=== PATIENT | male | born 1970 | race Caucasian/White ===

== ENCOUNTER 2019-07-13 17:53 | Emergency (ER) | payer MEDICARE, SELFPAY ==
[2019-07-13 17:53] VITALS: BP 132/83; PULSE 69; RESP 16; TEMP 36.2; O2SAT 100; BMI 17.2
--- NOTE | 2019-07-13 17:58 | EKG12_ITS ---
Test Reason : Blood Pressure : / mmHG Vent. Rate : 063 BPM Atrial Rate : 063 BPM P-R Int : 130 ms QRS Dur : 098 ms QT Int : 414 ms P-R-T Axes : 082 089 083 degrees QTc Int : 423 ms Normal sinus rhythm Normal ECG Confirmed by GURPREET LOPEZ, AKUA ([id number]), editorial cartoonist LAYLA CORBIN ([id number]) on 07/18/2019 11:49:06 AM Referred By: Connor Culver Confirmed By:AKUA VÁZQUEZ MD
--- NOTE | 2019-07-13 18:29 | EKG12_ITS ---
Test Reason : CP Blood Pressure : / mmHG Vent. Rate : 050 BPM Atrial Rate : 050 BPM P-R Int : 134 ms QRS Dur : 094 ms QT Int : 442 ms P-R-T Axes : 081 091 084 degrees QTc Int : 402 ms Sinus bradycardia with Premature atrial complexes Rightward axis Borderline ECG Confirmed by GURPREET LOPEZ, AKUA ([id number]), food expeditor LAYLA CORBIN ([id number]) on 07/18/2019 11:25:08 AM Referred By: Connor Culver Confirmed By:AKUA VÁZQUEZ MD
--- NOTE | 2019-07-13 18:29 | CT_ITS ---
STUDY: CTA CHEST REASON FOR EXAM: Male, 48 years old. Pain RADIATION DOSAGE (If Supplied By Facility): CTDIvol = ( 10.32 ) mGy, DLP = ( 275.38 ) mGycm TECHNIQUE: The examination was performed with the intravenous administration of IV 75mL Isovue-370 75ML. Post-processing of the angiographic images was performed, with multiplanar reformation and 3D reconstruction. Individualized dose optimization techniques were used for this CT. COMPARISON: None. FINDINGS: Normal enhancement of the main pulmonary artery and right and left pulmonary arteries. Normal enhancement of the bilateral peripheral pulmonary arteries. There is no demonstrated pulmonary embolism. Normal thoracic aorta and visualized great vessels. There is no demonstrated aortic dissection. Normal heart and pericardium. Normal mediastinum. Normal hilar regions. Normal visualized trachea and bronchi. The lungs are well expanded. Mild to moderate emphysema is present. There are mild diffuse ground glass opacities. There is no consolidation. Normal pleura. Normal chest wall structures. Normal osseous structures. Normal visualized upper abdomen. CT/CTA Chest W/WO Contrast IMPRESSION: No evidence of pulmonary embolism. Mild to moderate emphysema. Mild diffuse scattered ground glass opacities. Differential includes mild edema, inflammatory etiology, and less likely infectious process. Electronically Signed: Gurmeet Rosales, at 19:26 EST Tel , Service support ,
[2019-07-13] MEDS: Aspirin 81 MG TAB.CHEW 324 MG PO (18:35)
[2019-07-13 18:41] LABS: Absolute Lymphocyte Count 1.75 X10^3/uL (0.83-4.51); Absolute Neutrophil Count 6.3 X10^3/uL (2.0-7.7); Basophil# 0.03 X10^3/uL; Basophil% 0.3 % (0-1); Eosinophil# 0.08 X10^3/uL; Eosinophils% 0.9 % (0-5); Hematocrit 44.8 % (40-54); Hemoglobin 14.9 g/dL (13.0-16.5); Lymphocyte # 1.75 X10^3/ul (4.0); Lymphocyte % 19.6 % (19-41); Mean Corp Hgb Conc 33.3 g/dL (32-36); Mean Corpuscular Hgb 31.6 pg (27.0-32.0); Mean Corpuscular Volume 94.9 fL (80-94); Mean Platelet Vol. 10.6 fl (6.2-12.0); Monocyte# 0.76 X10^3/uL; Monocyte% 8.5 % (0-10); NRBC Flagged by Analyzer 0 % (0-5); Neutrophil # 6.32 X10^3/uL (2.7-7.7); Neutrophil % 70.6 % (47-70); Platelet Count 243 K/mm3 (150-450); RBC Distribution Width CV 12.9 % (11.6-14.6); RBC Distribution Width SD 45.1 fl (35.1-43.9); Red Blood Count 4.72 M/mm3 (4.6-6.2)
[2019-07-13 18:53] LABS: Anion Gap 6 (5-15); BUN 7 mg/dL (7-18); BUN/Creat Ratio 7.3 RATIO (10-20); Chloride 105 mmol/L (98-107); Creatinine, Serum 0.96 mg/dL (0.70-1.30); EST Glomerular Filtration Rate 89 mL/min (>60); Est Glom Filt Rate - Afr Amer 108 mL/min (>60); Estimated Creatinine Clearance 81.81 ml/min; Glucose 105 mg/dL (74-106); Potassium 3.7 mmol/L (3.5-5.1); Sodium Level 140 mmol/L (136-145)
[2019-07-13 19:11] VITALS: BP 119/79; PULSE 54; RESP 15; O2SAT 95
--- NOTE | 2019-07-13 19:38 | ED.VISSUMM ---
- ER Visit Summary Date of Service: 07/13/19 Chief Complaint: Chest pain History of Present Illness: The patient is a 48 M with left-sided chest pain. The symptoms started about 2 hours prior to arrival. They came on gradually. Pain is about 5 out of 10. He had this in conjunction with a dizzy spell. He gets these spells frequently. He has a history of vasovagal syncope. He did not pass out today. He had a similar spell 2 days ago. Those spells were associated with bilateral hand paresthesias. He reports some mild shortness of breath as well, but denies any other associated symptoms. He has a history of coronary disease with stent. He takes aspirin. He follows with Dr. Rodriguez. He has a known history of vasovagal syncope and has an implanted loop recorder. Physical Examination: Afebrile and vital signs unremarkable. Alert and oriented. No acute distress. Heart regular rate and rhythm. Lungs clear bilaterally. Abdomen soft and nontender. Extremities show some bilateral calf tenderness to palpation but no edema or asymmetry. DP pulses are symmetric. Test Results: EKG showed sinus rhythm at a rate of 63. CBC, BMP, troponin unremarkable. CT showed no evidence of PE. He does have emphysematous changes and groundglass opacities. Emergency Department Course and Treatment: Patient treated with aspirin. His work-up was fairly unremarkable. The near syncope sounds like a chronic issue for him. I do not believe that there is anything acutely different. The chest pain seems to be a new symptom. His work-up here was unremarkable, but his history is concerning and he will need inpatient care. I spoke with the hospitalist who will observe in the PCU. Treatment Plan: As above Disposition: As above Impression: 1. Chest pain This note was generated with Thomas[employer]Krenn dictation software. It may contain incorrect words, spelling, and punctuation that were not noted in review of the chart prior to signing ED Disposition - Plan for ED Patient: Referrals: Rob Hammer MD [Primary Care Provider] -
[2019-07-13 19:43] VITALS: BMI 17.2
--- NOTE | 2019-07-13 20:33 | ED.DEP ---
ED Disposition - Plan for ED Patient: Diagnosis: Chest pain
--- NOTE | 2019-07-13 20:49 | CON.PCM_ITS ---
Problem List (1) Chest pain Status: Acute Reason for Consult Date of Consultation: 07/13/19 Reason for Consultation: chest pain History of Present Illness: The patient is a 48 year old M who was in his normal state of health but then today was sitting waiting to potato picker his grandchildren and then had 1 of his near syncopal episodes. He did not lose consciousness but immediately had lower chest pain. Chest pain persisted and patient was concerned and came to the emergency room. In the emergency room, his work-up was negative for myocardial infarction. Patient does have a history of stents and did have a heart catheterization in 2017 that showed minimal coronary artery disease. Decision was made to admit the patient and have him undergo additional testing. [] Past Medical History Past Medical History (Chronic Problems): Chronic Problems (Last Updated 04/27/18 @ 19:05 by Lyssa Burgess) Status post placement of implantable loop recorder (Chronic) Atherosclerotic heart disease of [place] coronary artery without angina pectoris (Chronic) PCI and ABRAN to mid RCA 10/17/13 @ [facility] S/P coronary artery stent placement (Chronic ~2013) PCI and ABRAN to mid RCA 10/17/13 @ [facility] CAD (coronary artery disease) (Chronic) PCI and ABRAN to mid RCA 10/17/13 @ [facility] Migraine headache (Chronic) Sinus bradycardia (Chronic) Syncope (Chronic) Nephrolithiasis (Chronic) CAD (coronary artery disease) (Chronic) Meniere disease (Chronic) Medical History: Medical History (Last Reviewed 07/13/19 @ 20:50 by Connor Culver DO) Status post placement of implantable loop recorder (Chronic) Z95.818 Atherosclerotic heart disease of [place] coronary artery without angina pectoris (Chronic) I25.10 PCI and ABRAN to mid RCA 10/17/13 @ [facility] Dizziness (Acute) R42 Dyslipidemia (Acute) E78.5 Chest pain (Acute) R07.9 CAD (coronary artery disease) (Chronic) I25.10 PCI and ABRAN to mid RCA 10/17/13 @ [facility] Sinus bradycardia (Chronic) R00.1 Syncope (Chronic) R55 Allergies No Known Allergies Allergy (Verified 07/13/19 17:58) Home Medications: Ambulatory Orders Medication Instructions Recorded Aspirin [Aspirin EC] 325 mg PO DAILY 10/08/16 Butalb/Acetaminophen/Caffeine 1 ea PO Q6H PRN PRN 10/08/16 [Wbthcx-Yfolejxn-Lluc 50-325-40] Meclizine HCl [Antivert] 25 mg PO Q6H PRN PRN 10/08/16 Ondansetron [Zofran Odt] 4 mg PO Q6H PRN PRN 04/14/17 rosuvastatin 10 mg tablet 10 mg PO DAILY #90 tab 11/16/17 midodrine 10 mg tablet 10 mg PO TID #270 tab 05/16/19 Atenolol [Tenormin (beta simin)] 25 mg PO DAILY 07/13/19 Surgical History: Surgical History (Last Reviewed 07/13/19 @ 20:50 by Connor Culver DO) S/P coronary artery stent placement (Chronic) Onset Date: ~2013 Z95.5 PCI and ABRAN to mid RCA 10/17/13 @ [facility] Surgical History: - - 4 surgeries on right ulner nerve, right wrist, ears sowed back on, and heart stent Smoking Status: Former smoker Tobacco Use: Cigarettes - *Family History Maternal Family History: Family History (Last Reviewed 07/13/19 @ 20:50 by Connor Culver DO) Mother Heart disease History Items: Heart Disease Review of Systems Constitutional: Denies: Anorexia, Chills, Fever, Malaise, Weakness Eyes: Denies: Blurred vision, Double vision HEENT: Denies: Head Aches, Sinus Congestion, Sinus Drainage Cardiovascular: Reports: Chest Pain. Denies: Edema Respiratory: Denies: Cough, Shortness of breath at rest, Sputum production Gastrointestinal: Denies: Abdominal Pain, Nausea, Vomiting Genitourinary: Denies: Dysuria Musculoskeletal: Denies: Joint Pain, Joint Tenderness Skin: Denies: Rash, Wounds Neurological: Reports: Numbness - His hands during this event Psychiatric: Denies: Anxiety, Depression Endocrine: Reports: Change in Body Habitus - She has lost roughly 40 pounds over the past several years Hematologic/ Lymphatic: Denies: Easy Bruising, Easy Bleeding, Hx of blood clot Comment: Review of systems are otherwise negative except for as mentioned above in the review of systems and in HPI. Patient Problems: Active and Suspected Problems (Last Updated 04/27/18 @ 19:05 by Lyssa Burgess) Chest pain (Acute) - Physical Exam Vitals/I&O's: Vital Signs Temp Pulse Resp BP Pulse Ox 36.2 C L 54 L 15 119/79 95 07/13/19 17:53 07/13/19 19:11 07/13/19 19:11 07/13/19 19:11 07/13/19 19:11 Oxygen Delivery Method Room Air Weight: 60.8 kg Body Mass Index (BMI) 17.2 General: Alert, Cooperative, No apparent distress, - - Gaunt HEENT: Atraumatic, Normocephalic Oral: Moist Mucosa, No Gingival or Mucosal Lesions/ Ulcerations Neck: No Nodes, Thyroid Normal Size and Texture Lungs: Clear to auscultation, Normal air movement, No rhonchi, No wheeze, No rales, Diminished Cardiovascular: Regular rate, Regular Rhythm, Normal S1, Normal S2, No murmurs Abdomen: Bowel Sounds Present, Soft, Non Tender, Non-Distended, No Hepato- splenomegaly Extremities: No edema, No Calf Tenderness Skin: No rashes, No breakdown Musculoskeletal: No Tenderness to Palpation of Joints or Extremities, Cachexia, Muscle Wasting Psych/Mental Status: Normal Affect, Appropriate Laboratory Results 07/13/19 17:55: WBC 9.0, RBC 4.72, Hgb 14.9, Hct 44.8, MCV 94.9 H, MCH 31.6, MCHC 33.3, RDW Std Deviation 45.1 H, RDW Coeff of Pau 12.9, Plt Count 243, MPV 10.6, Immature Gran % (Auto) 0.100, Neut % (Auto) 70.6 H, Lymph % (Auto) 19.6, [place] % (Auto) 8.5, Eos % (Auto) 0.9, Baso % (Auto) 0.3, Absolute Neuts (auto) 6.3, Absolute Lymphs (auto) 1.75, Nucleated RBC % 0 07/13/19 17:55: Sodium 140, Potassium 3.7, Chloride 105, Carbon Dioxide 29.0, Anion Gap 6, BUN 7, Creatinine 0.96, Estim Creat Clear Calc 81.81, Est GFR (MDRD) Af Amer 108, Est GFR (MDRD) Non-Af 89, BUN/Creatinine Ratio 7.3 L, Glucose 105, Calcium 10.0, Troponin I < 0.015 EKG reviewed and showed normal sinus rhythm without any acute changes. Current Medications Sodium Chloride () 10 - 40 ml IV UD PRN PRN Reason: SALINE FLUSH Assessment/Plan All Active Problems (Last Updated 04/27/18 @ 19:05 by Lyssa Burgess) Dizziness (Acute) Dyslipidemia (Acute) Chest pain (Acute) 1. Chest pain * Heart score of 4 which suggests observation. Patient prefers to go home and have this done as outpatient. Explained the risks of possible developing myocardial infarction or even if he were to go home now. He still wishes to go home and I have the testing done as outpatient. I advised patient if he does have recurrent chest pain or worsening symptoms to notify his primary care provider or come back into the emergency room. I did strongly encourage him to stay to undergo the stress test and possible heart catheterization here in the hospital as a stress test could be done on the but he still insisted on going home. Code Visit Office Visits / Consults: [id number] OP Consult L4
== END 2019-07-13 20:37 | disposition home or self-care (01) ==
LOC: ED 18:19 → PCU 19:59
PROVIDERS: Emergency Provider Emergency Medicine; Family Provider Family Medicine; PCP Family Medicine
DX: R07.9 Chest pain, unspecified (principal); I25.10 Atherosclerotic heart disease of native coronary artery without angina pectoris; R55 Syncope and collapse; R20.2 Paresthesia of skin; R06.00 Dyspnea, unspecified; Z79.82 Long term (current) use of aspirin; Z79.899 Other long term (current) drug therapy; Z87.891 Personal history of nicotine dependence; Z95.5 Presence of coronary angioplasty implant and graft
CPT/HCPCS: 71275; 80048; 84484; 85025; 93005; 99285; Q9967; A4216

== ENCOUNTER 2019-08-30 15:05 | Emergency (ER) | payer MEDICARE, MEDICAID, SELFPAY ==
[2019-08-30 15:06] VITALS: BP 107/63; PULSE 54; RESP 16; TEMP 36.2; O2SAT 98; BMI 17.2
--- NOTE | 2019-08-30 15:36 | ED.VIS.GEN ---
History of Present Illness Chief Complaint: Bite Detail of Chief Complaint: Tick bite Informant: Patient Onset: Days Narrative: Patient presents secondary to tick bite. He states he was out in the [place] 3 days ago squirrel hunting. He felt 2 ticks on the back of his scalp. He states he remove them both, but is not sure he got all of the ones head. He states he woke this morning with some drainage on his pillow and was concerned that it was still there. - Past Medical History (1) Dyslipidemia Status: Chronic (2) CAD (coronary artery disease) Status: Chronic (3) Meniere disease Status: Chronic (4) Migraine headache Status: Chronic (5) Nephrolithiasis Status: Chronic (6) S/P coronary artery stent placement Status: Chronic Comment: PCI and ABRAN to mid RCA 10/17/13 @ [facility] Past Medical History - Allergies and Home Meds Allergies/Adverse Reactions: Allergies No Known Allergies Allergy (Verified 08/30/19 15:05) Primary Care Physician: Rob Hammer MD [Primary Care Provider] - Prior records reviewed: Yes Surgical History: - - 4 surgeries on right ulner nerve, right wrist, ears sowed back on, and heart stent Smoking Status: Former smoker - Family History Maternal Family History: Family History (Last Reviewed 07/13/19 @ 20:50 by Connor Culver DO) Mother Heart disease Family History: Reports: Heart Disease Review of Systems General: Denies: Chills, Fever Eyes: Denies: Visual changes - bilaterally ENT: Denies: Bilateral ear pain Cardiovascular: Denies: Chest pain Respiratory: Denies: Dyspnea, Cough Gastrointestinal: Denies: Abdominal pain, Nausea, Vomiting, Diarrhea Genitourinary: Denies: Dysuria Skin: Reports: Wounds Neurological: Denies: Headache Physical Exam Vital Signs/Narrative: Vital Signs Temp Pulse Resp BP Pulse Ox 08/30/19 15:06 97.2 F L 54 L 16 107/63 98 Inital Vital Signs reviewed: Yes General: Well nourished, Well developed Head: Normocephalic ENT: Moist mucous membranes Neck: Supple Cardiovascular: Regular rhythm, Bradycardia Respiratory: No distress, CTA bilaterally Abdomen: Soft, Nontender Skin: - - Small, superficial cutaneous abscess over the occipital scalp. No surrounding cellulitis. I do not see any evidence of foreign body. Neurological: Alert, Oriented x3 Psychological: Normal affect Diagnostic/Tx/Re-eval - Medical Decision Making Wound was cleansed. Patient be covered with a course of doxycycline for his cutaneous abscess. My suspicion for retained tick head is very low. ED Disposition - Plan for ED Patient: Disposition: Home or Assisted Living Diagnosis: Cutaneous abscess Instructions: ABSCESS, Antiobiotic Treatment Only Prescriptions: Doxycycline 100 mg PO BID #20 cap Transmission Status: Pending to [id number] Referrals: Rob Hammer MD [Primary Care Provider] - 1 Week if not improving
[2019-08-30] MEDS: Doxycycline 100 MG CAPSULE PO (15:49)
[2019-08-30 15:51] VITALS: RESP 16
== END 2019-08-30 15:53 | disposition home or self-care (01) ==
LOC: ED 15:50
PROVIDERS: Emergency Provider Emergency Medicine; Family Provider Family Medicine; PCP Family Medicine
DX: S00.06XA Insect bite (nonvenomous) of scalp, initial encounter (principal); L02.811 Cutaneous abscess of head [any part, except face]; W57.XXXA Bitten or stung by nonvenomous insect and other nonvenomous arthropods, initial encounter; Y93.9 Activity, unspecified; Y92.9 Unspecified place or not applicable; E78.5 Hyperlipidemia, unspecified; I25.10 Atherosclerotic heart disease of native coronary artery without angina pectoris; H81.09 Meniere's disease, unspecified ear; G43.909 Migraine, unspecified, not intractable, without status migrainosus; Z87.442 Personal history of urinary calculi; Z95.5 Presence of coronary angioplasty implant and graft; Z79.82 Long term (current) use of aspirin; Z79.899 Other long term (current) drug therapy; Z87.891 Personal history of nicotine dependence
CPT/HCPCS: 99282

== ENCOUNTER 2022-12-25 16:16 | Emergency (ER) | payer MEDICARE, MEDICAID, SELFPAY ==
[2022-12-25 16:18] VITALS: BP 121/100; PULSE 83; RESP 18; TEMP 36.3; O2SAT 98; BMI 17.8
[2022-12-25 16:39] VITALS: BP 145/102; PULSE 61; RESP 18; O2SAT 98
--- NOTE | 2022-12-25 17:25 | CT_ITS ---
INDICATION: History of aneurysm EXAMINATION: CT BRAIN WITH CONTRAST TECHNIQUE: Noncontrast axial images were obtained of the brain. Subsequently, routine carotid CT angiogram protocol was performed without and with IV contrast. In addition, images were obtained of the [place]. NASCET criteria using the distal ICAs for comparison were used for evaluation of stenoses. 3D reconstructions were reviewed. A radiation dose optimization technique was used for this scan. IV Contrast dosage and agent: COMPARISON: None. FINDINGS: --CT BRAIN: BRAIN PARENCHYMA: No intra- or extra-axial hemorrhage. No evidence of acute infarct. No intracranial mass or mass effect. There is preservation of the bardales/white matter interface. Posterior fossa structures are unremarkable. CSF SPACES: Appropriate for age. No hydrocephalus. Basal cisterns are patent. CALVARIUM, SKULL BASE, PARANASAL SINUSES AND MASTOID AIR CELLS: Clear. No discrete lytic or blastic abnormalities. --CTA NECK: AORTIC ARCH AND BRANCHES: Normal anatomy, patent. RIGHT CCA: No occlusion, significant stenosis or dissection. RIGHT ICA: No occlusion, significant stenosis or dissection. LEFT CCA: No occlusion, significant stenosis or dissection. LEFT ICA: No occlusion, significant stenosis or dissection. Mild dilatation of the proximal segment with a maximum diameter of 10 mm. RIGHT VERTEBRAL ARTERY: No occlusion, significant stenosis or dissection. LEFT VERTEBRAL ARTERY: No occlusion, significant stenosis or dissection. There are blebs noted in the visualized lung apices . --CTA HEAD: --Anterior circulation: ICAs: No significant stenosis at the intracranial/visualized segments. ACAs: No significant stenosis at the visualized segments. Nonvisualization of the right A1 segment, likely a normal variant. ACOM: Present. MCAs: No significant stenosis at the visualized segments. --Posterior circulation: PCOMs: Patent on the left. Nonvisualized on the right. steam conditioner filling: No significant stenosis at the visualized segments. BASILAR ARTERY: No significant stenosis. VERTEBRAL ARTERIES: No significant stenosis at the intradural/visualized segments. No evidence of intracranial aneurysm or vascular malformation. CT/CTA Head AND Neck W/ Contrast IMPRESSION: Mild dilatation of the proximal segment of the left internal carotid artery. No intracranial pathology is noted. Electronically Signed: [place] DO at 19:13 EDT Reading Location ID and State: [facility] / [place] Tel [phone], Service support ,
--- NOTE | 2022-12-25 17:27 | EX.ED.DYSGE1 ---
HPI History of Present Illness Chief Complaint: Numb/Ting PFSH PFSH Medical History Atherosclerotic heart disease of [place] coronary artery without angina pectoris CAD (coronary artery disease) Chest pain Dizziness Dyslipidemia Sinus bradycardia Status post placement of implantable loop recorder Syncope Home Medications aspirin 325 mg tablet,delayed release 325 mg PO DAILY 10/08/16 [History Last Taken 07/13/19] meclizine 25 mg tablet 25 mg PO Q6H PRN PRN Dizziness 10/08/16 [History Last Taken 07/13/19] ondansetron 4 mg disintegrating tablet 4 mg PO Q6H PRN PRN Nausea 04/14/17 [History Last Taken Unknown] rosuvastatin 10 mg tablet 10 mg PO DAILY Cholesterol #90 tabs 11/16/17 [Rx Last Taken Unknown] atenolol 25 mg tablet 25 mg PO DAILY blood pressure #90 tabs 02/29/20 [Rx Last Taken Unknown] midodrine 10 mg tablet 10 mg PO TID #270 tabs 03/10/21 [Rx Last Taken Unknown] celecoxib 100 mg capsule 1 mg PO BID 12/25/22 [History Last Taken Unknown] duloxetine 30 mg capsule,delayed release 30 mg PO DAILY 12/25/22 [History Last Taken Unknown] Allergy/AdvReac Type Severity Reaction Status Date / Time No Known Allergies Allergy Verified 12/25/22 16:23 Family History Mother Heart disease Surgical History S/P coronary artery stent placement (~2013) Social History (Updated 04/28/18 @ 16:37 by Angella JACK, PA) Smoking Status: Current every day smoker tobacco type: cigarettes alcohol intake: never substance use type: does not use caffeine: Yes Type: coffee what type of physical activity do you participate in: none seatbelt use: never do you feel safe at home: Yes EXAM Physical Exam Const Vital Signs: 12/25/22 16:18 12/25/22 16:39 12/25/22 17:48 Temperature 97.3 F L Temperature Source Temporal Pulse Rate 83 61 61 Respiratory Rate 18 18 17 Blood Pressure 121/100 H 145/102 H 110/85 H Blood Pressure Mean 107 116 93 Pulse Ox 98 98 97 Oxygen Delivery Method Room Air Room Air Room Air 12/25/22 19:19 12/25/22 21:04 Temperature Temperature Source Pulse Rate 49 L 51 L Respiratory Rate 15 Blood Pressure 129/92 H 139/89 H Blood Pressure Mean 104 105 Pulse Ox 98 98 Oxygen Delivery Method Room Air Room Air MDM MDM MDM Narrative Medical decision making narrative: Patient presenting with headache. He has chronic headaches and history of migraine headaches. He does admit to photophobia and phonophobia which is part of his migraine syndrome. He does have some numbness and tingling he states his face which has had before with migraines. No visual complaints. Patient had an MRI which showed concern for an aneurysm. Recommendation was for a CTA of the head and neck which was performed today and shows a mild dilatation of the proximal segment of the left internal carotid artery without aneurysm or dissection. Patient was treated with Reglan, Benadryl today and his headache is improved. He was reevaluated at 912. His CT results were read to him. I spoke with Dr. Naveed Real who is on-call for Rob Hammer. She recommended follow-up with him and I will get her referred to neurosurgery as needed. Patient discharged stable condition. Impression: 1. Headache 2. Dilated left internal carotid artery Radiography Diagnostic Testing: Clinical Impression(s) from Imaging Studies Head/Neck CTA 12/25/22 17:25 IMPRESSION: Mild dilatation of the proximal segment of the left internal carotid artery. No intracranial pathology is noted. Electronically Signed: [place] DO at 19:13 EDT Reading Location ID and State: [facility] / [place] Tel [phone], Service support , Discharge Plan Triage Chief Complaint: Numb/Ting ED Provider: Memo Lemus Dx/Rx/DC Orders Instructions: ED, Migraine (Classical) Prescriptions: No Action meclizine 25 MG tablet 25 mg PO Q6H PRN PRN (Reason: Dizziness) aspirin 325 MG tablet,delayed release (DR/EC) 325 mg PO DAILY ondansetron 4 MG tablet,disintegrating 4 mg PO Q6H PRN PRN (Reason: Nausea) celecoxib 100 mg capsule 1 mg PO BID duloxetine 30 mg capsule,delayed release(DR/EC) 30 mg PO DAILY rosuvastatin 10 MG tablet 10 mg PO DAILY Qty: 90 4RF atenolol 25 mg tablet 25 mg PO DAILY Qty: 90 3RF midodrine 10 mg tablet 10 mg PO TID Qty: 270 3RF Primary Care Provider: Rob Hammer Referrals: Rob Hammer MD [Primary Care Provider] - Disposition Disposition: Home, Self Care
[2022-12-25 17:48] VITALS: BP 110/85; PULSE 61; RESP 17; O2SAT 97
[2022-12-25] MEDS: 0.9% Normal Saline 1,000 ML 999 ML IV (17:49)
[2022-12-25] MEDS: proCHLORPERazine 10 MG/2 ML Vial IV (17:49)
[2022-12-25] MEDS: DiphenhydrAMINE 50 MG/ML Syringe 25 MG IV (17:49)
[2022-12-25 19:19] VITALS: BP 129/92; PULSE 49; RESP 15; O2SAT 98
[2022-12-25 21:04] VITALS: BP 139/89; PULSE 51; O2SAT 98
== END 2022-12-25 21:14 | disposition home or self-care (01) ==
PROVIDERS: Emergency Provider Student in an Organized Health Care Education/Training Program; PCP Family Medicine; Referring Provider Student in an Organized Health Care Education/Training Program; Visit Provider Student in an Organized Health Care Education/Training Program
DX: I67.1 Cerebral aneurysm, nonruptured (principal); R51.9 Headache, unspecified; I25.10 Atherosclerotic heart disease of native coronary artery without angina pectoris; E78.5 Hyperlipidemia, unspecified; Z79.82 Long term (current) use of aspirin; Z79.899 Other long term (current) drug therapy; Z95.5 Presence of coronary angioplasty implant and graft; F17.210 Nicotine dependence, cigarettes, uncomplicated
CPT/HCPCS: 70496; 70498; 96361; 96374; 96375; 99283; J7030; Q9967; A4216

== ENCOUNTER → 2023-05-11 | Outpatient (CLI) | payer MEDICARE, MEDICAID, SELFPAY ==
--- NOTE | 2023-05-11 | LES_PTH ---
PATIENT: MARIO MORIN LOC: [facility] U#:[id number] AGE/SX: 52/M ROOM: RE05/11/[address]: Dr. Michele Deng MD : 1970 BED: DIS: 05/11/2023 SPEC #: [id number] RECD: 05/11/23 14:58 STATUS: GINA ARSHAD #: [id number] LYUBOV: 05/11/23 00:[address]: Michele Deng DEPT: SURGICAL PATHOLOGY RECD BY: Azalia Wray ENTERED: 05/12/23 11:50 SP TYPE: Lesion OTHR DR: Dr. Rob Hammer MD [facility] Tissues: Skin of face, NOS Procedures: Surgery Specimen Level III HEADER OPERATION: Excision nasal mass dorsum PRE-OP DIAGNOSIS: Benign neoplasm of skin TISSUE SUBMITTED: Dorsum nasal mass MICROSCOPIC DIAGNOSIS Dorsal nasal mass, excision: Epidermal inclusion cyst. ESTEFANI:delfina 05/13/2023 MICROSCOPIC DESCRIPTION Slides are reviewed. GROSS DESCRIPTION Received is one container labeled with the patient's name and not further designated. The specimen consists of a piece of kidd-brown skin with underlying previously opened cyst. The skin piece measures 0.5 x 0.5 cm and previously ruptured cyst measures 1.5 x 1.0 x 0.3 cm. The specimen is bisected and submitted entirely in one cassette. / SJ:rg 05/12/2023 TC:1 CPT: 26895
== END | disposition home or self-care (01) ==
LOC: LABSPEC 05-12 10:57
PROVIDERS: PCP Family Medicine; Visit Provider Otolaryngology
DX: D23.39 Other benign neoplasm of skin of other parts of face (principal); L72.0 Epidermal cyst
CPT/HCPCS: 88304; 88305